=== PATIENT | male | born 1970 | race African-American/Black ===

== ENCOUNTER 2022-03-04 09:59 | Emergency (ER) | payer MEDICAID ==
[~2022-03-04] VITALS: Ht 167.6 cm; Wt 88.0 kg
[2022-03-04 10:55] LABS: BASOPHILS % 0.4 % (0.0-2.0); EOSINOPHILS % 2.7 % (0.0-5.0); HEMATOCRIT. 37.9 % (42.0-52.0); HEMOGLOBIN. 12.6 g/dL (14.0-18.0); LYMPHOCYTES % 13.2 % (20.0-50.0); MEAN CORPUSCULAR HEMOGLOBIN 31.3 pg (28.0-32.0); MEAN PLATELET VOLUME 7.1 fl (7.4-10.4); MONOCYTES % 6.9 % (2.0-8.0); NEUTROPHILS % 76.8 % (40.0-76.0); PLATELET 432 x1000/uL (130-400); RED BLOOD CELL COUNT 4.03 mill/uL (4.7-6.1); RED CELL DISTRIBUTION WIDTH 12.8 % (11.6-14.6)
[2022-03-04 11:02] LABS: CHLORIDE 104 mEq/L (98-107); INR 1.1; PROTHROMBIN TIME 11.8 sec (9.6-11.0)
[2022-03-04 11:17] LABS: ETHANOL BLOOD < 10 mg/dL
[2022-03-04] MEDS ORDERED: MORPHINE SULFATE 4 MG/ML CPJ (NOT FOR IM USE) IV ONE (12:45)
[2022-03-04] MEDS ORDERED: IOHEXOL-300 100 ML BOTTLE ONE (13:03)
[2022-03-04] MEDS ORDERED: LEVOFLOXACIN 750MG PREMIX 150 ML IV ONE (13:15)
[2022-03-04] MEDS ORDERED: LEVO750T46 MT (13:58)
[2022-03-04] MEDS ORDERED: IBUP-2028 MT (13:59)
[2022-03-04] MEDS ORDERED: TOPUD PO (13:59)
[2022-03-04 14:45] VITALS: BP 107/73
== END 2022-03-04 14:52 | disposition home or self-care (01) ==
LOC: ER 09:59
DX: J18.9 Pneumonia, unspecified organism (principal); F17.200 Nicotine dependence, unspecified, uncomplicated; Z86.73 Personal history of transient ischemic attack (TIA), and cerebral infarction without residual deficits
CPT/HCPCS: 36415; 71045; 71260; 80053; 80320; 83690; 83880; 84484; 85025; 85610; 93005; 96365; 96375; 99285; J1956; J2270; Q9967; G0480

== ENCOUNTER 2023-03-29 14:52 | Emergency (ER) | payer MEDICAID ==
[~2023-03-29] VITALS: Ht 175.3 cm; Wt 61.0 kg
[~2023-03-29 14:52] MED LIST: IBUP-2028 MT; LEVO750T68 MT; TOPUD PO
[2023-03-29 15:01] VITALS: O2SAT 100
[2023-03-29] MEDS ORDERED: BACITRACIN ZINC OINT UDPKT TOP ONE (15:15)
[2023-03-29] MEDS ORDERED: LIDOCAINE HCL/PF 1% 10 MG/ML 5ML VIAL INFIL ONE (15:15)
[2023-03-29] MEDS ORDERED: TETANUS, DIPHTHERIA, PERTUSSIS VAC/PF 0.5ML (>10YR OLD) IM ONE (15:15)
[2023-03-29] MEDS ORDERED: LIDOCAINE 5% PATCH TOP SCH (17:45)
[2023-03-29] MEDS ORDERED: KETOROLAC 30MG/ML VIAL IM ONE (17:45)
[2023-03-29] MEDS ORDERED: AMOX1TAB16 MT (18:29)
[2023-03-29] MEDS ORDERED: LIDO700A15 TP (18:36)
[2023-03-29] MEDS ORDERED: IBUP-2028 MT (18:36)
[2023-03-29 19:03] VITALS: BP 122/80; PULSE 88; RESP 18; TEMP 98.4
== END 2023-03-29 19:54 | disposition home or self-care (01) ==
LOC: ER 15:00
DX: S01.511A Laceration without foreign body of lip, initial encounter (principal); Z86.73 Personal history of transient ischemic attack (TIA), and cerebral infarction without residual deficits; W50.0XXA Accidental hit or strike by another person, initial encounter; Y93.89 Activity, other specified; Y92.89 Other specified places as the place of occurrence of the external cause; Y99.8 Other external cause status
CPT/HCPCS: 90715; 12013; 90471; 96372; 99284; J1885; J3490; Z7610 ×2

== ENCOUNTER 2023-04-03 13:45 | Emergency (ER) | payer MEDICAID ==
[~2023-04-03] VITALS: Ht 182.9 cm; Wt 68.0 kg
[~2023-04-03 13:45] MED LIST changes: +AMOX1TAB16 MT; +LIDO700A15 TP
[2023-04-03 14:05] VITALS: BP 107/60; PULSE 86; RESP 20; TEMP 98.8; O2SAT 100
== END 2023-04-03 15:13 | disposition home or self-care (01) ==
LOC: ER 13:45
DX: S01.511D Laceration without foreign body of lip, subsequent encounter (principal); Z86.73 Personal history of transient ischemic attack (TIA), and cerebral infarction without residual deficits; Z79.899 Other long term (current) drug therapy; X58.XXXD Exposure to other specified factors, subsequent encounter
CPT/HCPCS: 99281

== ENCOUNTER 2023-04-17 14:24 | Emergency (ER) | payer MEDICAID ==
[~2023-04-17] VITALS: Ht 175.3 cm; Wt 56.7 kg
[2023-04-17 14:46] VITALS: BP 114/70; PULSE 85; RESP 16; TEMP 98.1; O2SAT 99
== END 2023-04-17 16:55 | disposition home or self-care (01) ==
LOC: ER 14:37
DX: S01.511D Laceration without foreign body of lip, subsequent encounter (principal); X58.XXXD Exposure to other specified factors, subsequent encounter
CPT/HCPCS: 99281